=== PATIENT | male | born 1985 | race Caucasian/White ===

== ENCOUNTER 2017-11-19 19:28 | Emergency (ER) | payer OTHER ==
[2017-11-19 19:45] VITALS: BP 139/81; PULSE 80; RESP 18; TEMP 98.1
--- NOTE | 2017-11-19 20:07 | ED ---
Skin/Abscess/FB HPI - General Chief complaint: Skin/Abscess/Foreign Body Stated complaint: Eval Left Foot Injury/Toes Time Seen by Provider: 11/19/17 19:57 Source: patient, RN notes reviewed Mode of arrival: ambulatory Limitations: no limitations - History of Present Illness Initial comments: This is a 32-year-old male who presents to the emergency department with chief complaint of left foot injury. 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 He states that at 830 this morning he dropped a part onto his left foot. He states that he dropped it from approximately 3 feet. He states that the part weighed approximately 13 pounds. Patient removed his sock and shoe immediately and did notice any bruising. He went home and did some work around the house. He then noticed some bruising and tenderness to the great toe. He states he has been ambulating normally. Denies any other injuries or trauma. Denies fevers or chills, chest pain or shortness breath, abdominal pain, nausea or vomiting. - Related Data Home Medications Medication Instructions Recorded Confirmed No Known Home Medications [No 11/19/17 11/19/17 Known Home Medications] Allergies Allergy/AdvReac Type Severity Reaction Status Date / Time No Known Allergies Allergy Verified 11/19/17 19:43 Review of Systems ROS Statement: Those systems with pertinent positive or pertinent negative responses have been documented in the HPI. ROS Other: All systems not noted in ROS Statement are negative. Past Medical History Past Medical History: No Reported History History of Any Multi-Drug Resistant Organisms: None Reported Additional Past Surgical History / Comment(s): heart surgery at 3 months Past Psychological History: No Psychological Hx Reported Smoking Status: Never smoker Past Alcohol Use History: None Reported Past Drug Use History: None Reported General Exam - General Exam Comments Initial Comments: General: Awake and alert, well-developed; in no apparent distress. HEENT: Head atraumatic, normocephalic. Pupils are equal, round and reactive to light. Extraocular movements intact. Oropharynx moist without erythema or exudate. Neck: Supple. Normal ROM. Cardiovascular: Regular rate and rhythm. No murmurs, rubs or gallops. Chest symmetrical. Respiratory: Lungs clear to auscultation bilaterally. No wheezes, rales or rhonchi. Normal respiratory effort with no use of accessory muscles. Musculoskeletal: Normal range of motion of the left foot and toes. There is ecchymosis surrounding toes 1 and 2 and the distal dorsal foot. Sensation is intact. Pedal pulses are 2+ equal and palpable bilaterally. Patient is ambulating normally. Skin: [place], warm and dry without rashes. Neurological: Alert and oriented x3. CN II-XII grossly intact. Speech is fluent and answers are appropriate. No focal neuro deficits. Psychiatric: Normal mood and affect. No overt signs of depression or anxiety noted. Limitations: no limitations Course Vital Signs 11/19/17 19:43 Temperature 98.1 F Pulse Rate 80 Respiratory 18 Rate Blood Pressure 139/81 O2 Sat by Pulse 98 Oximetry Procedures - Orthopedic Splinting/Casting Injury #1 Side: left Lower Extremity Injury Location: toe Lower Extremity Immobilizer: post-op shoe, alicia tape Medical Decision Making - Medical Decision Making This is a 32-year-old male who presents to the emergency department with chief complaint of left foot injury. Patient dropped a heavy part on his left foot while at work earlier this morning. On physical examination, patient does have normal range of motion and is neurovascularly intact. There is ecchymosis surrounding toes 1 and 2 on the left foot. X-ray of the left foot was obtained and revealed a nondisplaced intra-articular fracture of the proximal phalanx of the first digit. Toes were alicia taped and a postop shoe was placed. Patient is neurovascularly intact. Recommended rest, ice, elevation and follow-up with orthopedics. Patient is in agreement with plan and voices understanding. He' ll be discharged home at this time. All questions answered. - Radiology Data Radiology results: report reviewed, image reviewed X-ray left foot impression: Nondisplaced intra-articular fracture proximal phalanx first digit. Disposition Clinical Impression: Toe fracture Disposition: HOME SELF-CARE Condition: Good Instructions: Toe Fracture (ED) Additional Instructions: Please rest, ice, elevate and take ibuprofen as needed. Please follow-up with Dr. Ramires, orthopedics within 1-2 days. Please follow up with primary care provider within 1-2 days. Return to emergency department if symptoms should worsen or any concerns arise. Is patient prescribed a controlled substance at d/c from ED?: No Referrals: None,Stated [Primary Care Provider] - 1-2 days Peter Ramires MD [STAFF PHYSICIAN] - 1-2 days Time of Disposition: 20:42
--- NOTE | 2017-11-19 20:30 | XR ---
EXAMINATION TYPE: XR foot complete LT DATE OF EXAM: 11/19/2017 COMPARISON: NONE HISTORY: Pain TECHNIQUE: Three views are submitted. FINDINGS: There is a intra-articular fracture of the distal margin of the proximal phalanx first digit. No disp lacement does appear to be some degree of comminution of the fracture line. Remaining osseous structures intact. IMPRESSION: 1. Nondisplaced intra-articular fracture proximal phalanx first digit.
== END 2017-11-19 20:52 | disposition home or self-care (01) ==
LOC: EC 19:28
DX: S92.415A Nondisplaced fracture of proximal phalanx of left great toe, initial encounter for closed fracture (principal); W20.8XXA Other cause of strike by thrown, projected or falling object, initial encounter; Y92.69 Other specified industrial and construction area as the place of occurrence of the external cause; Y99.0 Civilian activity done for income or pay
CPT/HCPCS: 99283

== ENCOUNTER 2023-09-27 09:35 | Emergency (ER) | payer BC, OTHER ==
[2023-09-27 10:10] VITALS: TEMP 98.4
[2023-09-27] MEDS: MORPHINE SULFATE 4 MG/ML SYRINGE IM STA ×2 (11:05→13:20)
--- NOTE | 2023-09-27 12:26 | XR ---
EXAMINATION TYPE: XR wrist complete RT DATE OF EXAM: 09/27/2023 COMPARISON: NONE HISTORY: 38-year-old male with right wrist pain and deformity after fall TECHNIQUE: 4 views FINDINGS: Impacted fracture of the distal radial metaphysis and epiphysis. There is comminution and a intra-articular extension into both the distal radial ulnar joint and the radiocarpal joint. Mild do rsal angulation with slight regional displacement of ulnar sided fracture fragments. Mildly displaced fracture of the base of the ulnar styloid process as well. IMPRESSION: 1. Comminuted fracture distal radial metaphysis and epiphysis with intra-articular extension into bot h the radiocarpal and distal radioulnar joints. Mild regional displacement of ulnar sided fracture fr agments and mild dorsal angulation. 2. Mildly displaced fracture of the ulnar styloid process.
--- NOTE | 2023-09-27 13:10 | ED ---
Trauma HPI - General Chief Complaint: Extremity Injury, Upper Stated Complaint: fall, 6 FT Time Seen by Provider: 09/27/23 09:49 Source: patient Mode of arrival: ambulatory Limitations: no limitations - History of Present Illness Initial Comments: 38-year-old male presents to the emergency department with right wrist injury. Patient states that he was on a 6 foot ladder. Patient lost his footing and fell landing on an outstretched right arm. This injury happened at work. Patient was splinted and sent over to our facility. He is right-hand dominant. There is obvious deformity. He denies any numbness or tingling into his hand. He did not take anything for pain before coming in. Patient did not strike his head. No neck or back pain. No other alleviating, precipitating modifying factors - Related Data Previous Rx's Medication Instructions Recorded HYDROcodone/APAP 10-325MG [[place] 1 tab PO Q4HR PRN 3 Days #18 tab 09/27/23 10-325] Ibuprofen [Motrin] 600 mg PO Q8HR PRN #30 tab 09/27/23 Allergies Allergy/AdvReac Type Severity Reaction Status Date / Time No Known Allergies Allergy Verified 09/27/23 13:34 Review of Systems ROS Statement: Those systems with pertinent positive or pertinent negative responses have been documented in the HPI. ROS Other: All systems not noted in ROS Statement are negative. Past Medical History Past Medical History: No Reported History History of Any Multi-Drug Resistant Organisms: None Reported Additional Past Surgical History / Comment(s): heart surgery at 3 months Past Psychological History: No Psychological Hx Reported Smoking Status: Former smoker Past Alcohol Use History: None Reported Past Drug Use History: None Reported General Exam Limitations: no limitations General appearance: alert, in no apparent distress Head exam: Present: atraumatic, normocephalic, normal inspection Eye exam: Present: normal appearance, PERRL, EOMI. Absent: scleral icterus, conjunctival injection, periorbital swelling ENT exam: Present: normal exam, mucous membranes moist Neck exam: Present: normal inspection. Absent: tenderness, meningismus, lymphadenopathy Respiratory exam: Present: normal lung sounds bilaterally. Absent: respiratory distress, wheezes, rales, rhonchi, stridor Cardiovascular Exam: Present: regular rate, normal rhythm, normal heart sounds. Absent: systolic murmur, diastolic murmur, rubs, gallop, clicks GI/Abdominal exam: Present: soft, normal bowel sounds. Absent: distended, tenderness, guarding, rebound, rigid Extremities exam: Present: tenderness (And swelling to the right distal forearm. There is obvious deformity. Patient continues to have intact range of motion of all 5 digits. 2+ DP and PT pulses. Compartments are soft), normal capillary refill. Absent: pedal edema, joint swelling, calf tenderness Back exam: Present: normal inspection Neurological exam: Present: alert, oriented X3, CN II-XII intact Psychiatric exam: Present: normal affect, normal mood Skin exam: Present: warm, dry, intact, normal color. Absent: rash Course Vital Signs 09/27/23 09/27/23 09:43 13:27 Temperature 98.4 F Pulse Rate 71 62 Respiratory 18 16 Rate Blood Pressure 117/84 129/88 O2 Sat by Pulse 96 97 Oximetry Procedures - Orthopedic Splinting/Casting Injury #1 Side: right Upper Extremity Injury Location: short arm Upper Extremity Immobilizer: sugar tong splint, synthetic pre-padded splint Medical Decision Making - Medical Decision Making Was pt. sent in by a medical professional or institution ([facility], TRADE SPECIALIST, urgent care, hospital, or residential...) When possible be specific @ -no Did you speak to anyone other than the patient for history (EMS, parent, family, police, friend...)? What history was obtained from this source @ -No Did you review nursing and triage notes (agree or disagree)? Why? @ -I reviewed and agree with nursing and triage notes Were old charts reviewed (outside hosp., previous admission, EMS record, old EKG, old radiological studies, urgent care reports/EKG's, residential records)? Report findings @ -No old charts were reviewed Differential Diagnosis (chest pain, altered mental status, abdominal pain women, abdominal pain men, vaginal bleeding, weakness, fever, dyspnea, syncope, headache, dizziness, GI bleed, back pain, seizure, CVA, palpatations, mental health, musculoskeletal)? @ -Differential Musculoskeletal Muscular strain, contusion, ligament sprain, fracture, arthritis, septic arthritis, bursitis, cellulitis, muscle spasm, nerve compression, DVT, arterial occlusion, herpes zoster, electrolyte abnormality, tumor.... This is not meant to be in all inclusive list EKG interpreted by me (3pts min.). @ -Not done X-rays interpreted by me (1pt min.). @ -Yes and demonstrates distal forearm fracture CT interpreted by me (1pt min.). @ -None done U/S interpreted by me (1pt. min.). @ -None done What testing was considered but not performed or refused? (CT, X-rays, U/S, labs)? Why? @ -None What meds were considered but not given or refused? Why? @ -None Did you discuss the management of the patient with other professionals (professionals i.e. , PA, TRADE SPECIALIST, lab, RT, psych nurse, director social welfare, lead athlete, teacher, youth officer, rifle case repairer)? Give summary @ -No Was smoking cessation discussed for >3mins.? @ -No Was critical care preformed (if so, how long)? @ -No Were there social determinants of health that impacted care today? How? (Homelessness, low income, unemployed, alcoholism, drug addiction, transportation, low edu. Level, literacy, decrease access to med. care, [facility], rehab)? @ -No Was there de-escalation of care discussed even if they declined (Discuss DNR or withdrawal of care, Hospice)? DNR status @ -No What co-morbidities impacted this encounter? (DM, HTN, Smoking, COPD, CAD, Cancer, CVA, ARF, Chemo, Hep., AIDS, mental health diagnosis, sleep apnea, morbid obesity)? @ -None Was patient admitted / discharged? Hospital course, mention meds given and route, prescriptions, significant lab abnormalities, going to OR and other pertinent info. @ -Upon arrival patient was seen and evaluated in room 29. Thorough history and physical exam was performed. Patient was given IM pain medications. X-ray was performed which demonstrates distal forearm fracture. Patient is placed in a sugar-tong splint. He is instructed to rest, ice and elevate the extremity. He is placed in a sling. He is to follow-up with the orthopedic surgeon for further management of his injury and return for any new or worsening symptoms. Patient agreeable to plan and was discharged in stable condition Undiagnosed new problem with uncertain prognosis? @ -No Drug Therapy requiring intensive monitoring for toxicity (Heparin, Nitro, Insulin, Cardizem)? @ -No Were any procedures done? @ -No Diagnosis/symptom? @ -Acute fall off ladder, acute right distal radius and ulnar fracture Acute, or Chronic, or Acute on Chronic? @ -Acute Uncomplicated (without systemic symptoms) or Complicated (systemic symptoms)? @ -Complicated Side effects of treatment? @ -No Exacerbation, Progression, or Severe Exacerbation? @ -No Poses a threat to life or bodily function? How? (Chest pain, [place], [place], pneumonia, PE, COPD, DKA, ARF, appy, cholecystitis, CVA, Diverticulitis, Homicidal, Suicidal, threat to staff... and all critical care pts) @ -No Disposition Clinical Impression: Right radial fracture, Fall from height of greater than 3 feet, Right distal ulnar fracture Disposition: HOME SELF-CARE Condition: Stable Instructions (If sedation given, give patient instructions): Wrist Fracture in Adults (ED) Additional Instructions: Please follow-up with orthopedic office for further evaluation of your wrist fracture. Rest, ice and elevate the extremity. Alternate taking Motrin and [place] for pain control. Return for any new or worsening symptoms. Do not get your splint wet or take off the dressing before you see the orthopedic doctor Prescriptions: Ibuprofen [Motrin] 600 mg PO Q8HR PRN #30 tab PRN Reason: Pain HYDROcodone/APAP 10-325MG [[place] 10-325] 1 tab PO Q4HR PRN 3 Days #18 tab PRN Reason: Pain Is patient prescribed a controlled substance at d/c from ED?: Yes When asked, does pt state using other controlled substances?: No If prescribed controlled substance>3 days was MAPS reviewed?: Prescribed <3 Days If opioid is for acute pain is fill amount 7 days or less?: Yes Referrals: None,Stated [Primary Care Provider] - 1-2 days Mauricio Osuna MD [STAFF PHYSICIAN] - 1-2 days Time of Disposition: 13:05
[2023-09-27 13:55] VITALS: BP 129/88; PULSE 62; RESP 16
== END 2023-09-27 13:28 | disposition home or self-care (01) ==
LOC: EC 09:35
DX: S52.501D Unspecified fracture of the lower end of right radius, subsequent encounter for closed fracture with routine healing (principal); S52.611A Displaced fracture of right ulna styloid process, initial encounter for closed fracture; S52.591A Other fractures of lower end of right radius, initial encounter for closed fracture; Z87.891 Personal history of nicotine dependence; W17.89XD Other fall from one level to another, subsequent encounter; Y99.0 Civilian activity done for income or pay
CPT/HCPCS: 73110; 29125; 99283; 96372 ×2; J2270

== ENCOUNTER → 2023-09-30 | Outpatient (CLI) | payer OTHER ==
--- NOTE | 2023-09-30 17:39 | CT ---
EXAMINATION TYPE: CT wrist RT wo con CT DLP: 104.8 mGycm, Automated exposure control for dose reduction was used. DATE OF EXAM: 09/30/2023 5:13 PM COMPARISON: Wrist radiograph 09/27/2023. CLINICAL INDICATION:Male, 38 years old with history of S52.571A OTH INTARTIC FRACTURE OF LOWER END OF RIG; PHH, fell off machine at work, presurgical planning TECHNIQUE: Axial images were obtained of the CT wrist RT wo con, Additional coronal and sagittal refo rmatted images and soft tissue and bone window were obtained for review. 3-D reconstruction was creat ed on a separate workstation. Contrast used: mL of , (None if empty) Oral contrast used: (None if empty) FINDINGS: Comminuted intra-articular fracture of the distal radius as well as fracture of the ulnar s tyloid process. There is soft tissue swelling around the wrist with dorsal angulation mild shortening /step-off of the lower lateral aspect series 14 image 41. IMPRESSION: Comminuted intra-articular fracture of the distal radius as well as fracture of the ulnar styloid pro cess.
== END | disposition home or self-care (01) ==
LOC: RADCTMAIN 15:53
PROVIDERS: ATTEND Orthopaedic Surgery
DX: Z01.818 Encounter for other preprocedural examination (principal); S52.571A Other intraarticular fracture of lower end of right radius, initial encounter for closed fracture; S52.611A Displaced fracture of right ulna styloid process, initial encounter for closed fracture; W19.XXXA Unspecified fall, initial encounter

== ENCOUNTER → 2024-01-19 | Outpatient (CLI) | payer OTHER | END | disposition home or self-care (01) | LOC: LABPRL 08:15 | PROVIDERS: ATTEND Physician Assistant | DX: R22.31 Localized swelling, mass and lump, right upper limb (principal) | CPT/HCPCS: 82306; 82310; 84402; 84403 ==